=== PATIENT | female | born 1995 | race Caucasian/White ===

== ENCOUNTER 2023-11-16 00:48 | Emergency (ER) | payer BC ==
[~2023-11-16] VITALS: Ht 175.3 cm; Wt 79.0 kg
[2023-11-16 01:12] VITALS: BP 125/89; PULSE 94; RESP 20; TEMP 98.3; O2SAT 100
[2023-11-16] MEDS ORDERED: AMOX1TAB16 MT (02:39)
== END 2023-11-16 02:48 | disposition home or self-care (01) ==
LOC: ER 00:48
DX: S70.312A Abrasion, left thigh, initial encounter (principal); W54.0XXA Bitten by dog, initial encounter; Y93.89 Activity, other specified; Y92.89 Other specified places as the place of occurrence of the external cause; Y99.8 Other external cause status
CPT/HCPCS: 99283